=== PATIENT | male | born 1990 | race Caucasian/White ===

== ENCOUNTER 2021-05-11 13:36 | Emergency (ER) | payer OTHER, SELFPAY ==
--- NOTE | ~2021-05-11 | US_ITS ---
EXAMINATION: US SCROTUM CLINICAL INFORMATION: Bilateral testicular pain and retraction. COMPARISON: None TECHNIQUE: A sonogram of the scrotum was performed assessing apodaca-scale appearance and color Doppler flow. Spectral Doppler analysis of the arterial and venous flow were performed in the testes bilaterally. FINDINGS: RIGHT: Right testicle measures 5.2 x 2.7 x 3.1 cm, volume 22.7 mL. No focal testicular parenchymal lesions are visualized. There are scattered punctate microcalcifications without associated mass. Spectral Doppler analysis of the arterial and venous flow is normal in the right testis. No torsion. Right epididymal head is normal in size. No right hydrocele or varicocele is seen. Right epididymal Doppler flow is normal. LEFT: Left testicle measures 5.0 x 2.3 x 3.4 cm, volume 20.2 mL. No focal testicular parenchymal lesions are visualized. There are scattered punctate microcalcifications without associated mass. Spectral Doppler analysis of the arterial and venous flow is normal in the left testis. No torsion. Left epididymal head is normal in size. No left hydrocele or varicocele is seen. Left epididymal Doppler flow is normal. US/US scrotum doppler IMPRESSION: 1. Normal testicular Doppler. No torsion. No hydrocele. 2. Testicular microlithiasis is present without intratesticular mass or other worrisome findings. In the absence of any other risk factors for testicular cancer (e.g., personal history of testicular cancer, a father or brother with testicular cancer, history of cryptorchidism or maldescent, testicular atrophy, or other risk factors), no further imaging or biochemical follow-up is necessary; all that is recommended is routine monthly testicular self-examination. However, if the patient has risk factors for testicular cancer, referral to a urologist for evaluation and determination of an optimal follow-up strategy is recommended.
--- NOTE | ~2021-05-11 | US_ITS ---
EXAMINATION: US SCROTUM CLINICAL INFORMATION: Bilateral testicular pain and retraction. COMPARISON: None TECHNIQUE: A sonogram of the scrotum was performed assessing apodaca-scale appearance and color Doppler flow. Spectral Doppler analysis of the arterial and venous flow were performed in the testes bilaterally. FINDINGS: RIGHT: Right testicle measures 5.2 x 2.7 x 3.1 cm, volume 22.7 mL. No focal testicular parenchymal lesions are visualized. There are scattered punctate microcalcifications without associated mass. Spectral Doppler analysis of the arterial and venous flow is normal in the right testis. No torsion. Right epididymal head is normal in size. No right hydrocele or varicocele is seen. Right epididymal Doppler flow is normal. LEFT: Left testicle measures 5.0 x 2.3 x 3.4 cm, volume 20.2 mL. No focal testicular parenchymal lesions are visualized. There are scattered punctate microcalcifications without associated mass. Spectral Doppler analysis of the arterial and venous flow is normal in the left testis. No torsion. Left epididymal head is normal in size. No left hydrocele or varicocele is seen. Left epididymal Doppler flow is normal. US/US scrotum IMPRESSION: 1. Normal testicular Doppler. No torsion. No hydrocele. 2. Testicular microlithiasis is present without intratesticular mass or other worrisome findings. In the absence of any other risk factors for testicular cancer (e.g., personal history of testicular cancer, a father or brother with testicular cancer, history of cryptorchidism or maldescent, testicular atrophy, or other risk factors), no further imaging or biochemical follow-up is necessary; all that is recommended is routine monthly testicular self-examination. However, if the patient has risk factors for testicular cancer, referral to a urologist for evaluation and determination of an optimal follow-up strategy is recommended.
[2021-05-11 14:43] VITALS: BP 124/94; PULSE 68; RESP 16; O2SAT 100; BMI 19.8
--- NOTE | 2021-05-11 15:31 | ED.MALEGU ---
HPI - Male Genitourinary General Chief complaint: Urogenital-Male Stated complaint: testicles retracting Time Seen by Provider: 05/11/21 15:21 Source: patient Mode of arrival: ambulatory Limitations: no limitations History of Present Illness HPI Narrative: Patient is a 30-year-old male with no significant medical history. Patient reports that for the past 2 years she has noted testicular retraction bilaterally during times of sexual intercourse. This occurs without pain he is able to manually lower the bilateral testicles. He reports that he mentioned this to his PCP but has not had any outpatient ultrasound urology referral. He reports that for the past 2-3 weeks there has been associated pain with the testicular retraction and it is also occurring outside of times of sexual intercourse. Pain is made worse with movement, ambulation, and abduction of the legs. Denies swelling of the scrotum denies any new sexual partners, denies concern for sexually transmitted infection. Denies dysuria, urinary frequency, any urgency, hesitancy and a mild discharge. Denies any past history of testicular surgery or precipitating injuries. MD Complaint: testicle pain Onset (ago): week(s) (2-3) Duration: intermittent Location: right testicle and left testicle Severity scale (1-10): 5 Quality: aching Relieving factors: rest Exacerbating factors: movement Associated symptoms: Reports other (bilateral testicular retraction) Related Data Sexually active: Yes Allergies Allergy/AdvReac Type Severity Reaction Status Date / Time Unable to Assess Allergy Verified 05/11/21 15:22 Review of Systems Review of Systems: Constitutional: No weight loss, fever, chills, weakness or fatigue. HEENT: No visual loss, blurred vision, double vision or yellow sclera. No hearing loss, sneezing, congestion, runny nose or sore throat. Skin: No rash or itching. Cardiovascular: No chest pain, chest pressure or chest discomfort. No palpitations or pedal edema. Respiratory: No shortness of breath, cough or sputum production. Gastrointestinal: No anorexia, nausea, vomiting or diarrhea. No abdominal pain or blood in stool. Genitourinary: + testicular pain No burning micturition. No urinary frequency or incontinence. Neurologic: No headache, dizziness, syncope, unilateral weakness, ataxia, numbness or tingling in the extremities. No change in bowel or bladder control. Musculoskeletal: No muscle pain, back pain, joint pain or stiffness. Hematologic: No bleeding or bruising. Lymphatics: No enlarged lymph nodes. Psychiatric:No depression or anxiety. Endocrine: No reports of sweating. No cold or heat intolerance. No polyuria or polydipsia. [facility] Past Medical History Attestation statement: The following information was validated with the patient. Source: old records reviewed Social History Social History Advance Directives: No Advance Directives Information Provided: No Physical Exam Vital Signs: Vital Signs: Last Vital Signs Pulse 68 05/11/21 14:43 Resp 16 05/11/21 14:43 BP 124/94 H 05/11/21 14:43 Pulse Ox 100 05/11/21 14:43 BMI result Body Mass Index 19.8 Appearance: Alert.? Oriented X3.? No acute distress.?? Eyes: Pupils equal, round and reactive to light.?? ENT: Pharynx normal.?? Neck: Normal inspection.? Neck supple.?? CVS: Normal heart rate and rhythm.? Pulses normal.?? Respiratory: No respiratory distress.? Breath sounds normal.?? Abdomen: Soft and nontender.?? Genitourinary: No scrotal erythema, swelling, discoloration. Patient manually able to manually retract and lower bilateral testicles during exam. Skin: Skin warm and dry.? Normal skin color.? Normal skin turgor.?? Extremities: No lower extremity edema.? No calf ttp? Neuro: Oriented X 3.? No motor deficit.? No sensory deficit. Genitourinary exam performed with machine operator picker. Course Course Course Narrative: Testicular ultrasound reveals testicular microlithiasis, no torsion and no hydrocele. Symptoms are unchanged since arrival. Pain continues to only be present with movement, and ambulation. Urinalysis and urine gonorrhea and chlamydia pending. Reevaluation(s) Reevaluation #1: Notified by nursing staff that patient is requesting to leave at this time. States he has somewhere he needs to be. Advised to await all results prior to discharge, but patient declined, advised to follow-up with Urology, and to return with any worsening or new symptoms. Time: 17:00 MDM - Male Genitourinary MDM Narrative Medical decision making narrative: 30-year-old man with history and physical exam concern for bilateral testicular pain with ability to manually retract and release bilateral testicles into pelvis. This problem has been ongoing for a couple of years, however the penis. In consideration of this, urinalysis to be obtained to exclude acute cystitis and urine screening for gonorrhea and chlamydia. Scrotum doppler US to exclude testicular torsion, but is unlikely given the ability manually descend the testicles. Differential Diagnosis Differential diagnosis: Likely urinary tract infection; Unlikely priapism Medical Records Attestation: I reviewed the patient's medical records. Lab Data Attestation: I reviewed the patient's lab results. Imaging Data scrotum us: Radiologist's impression: IMPRESSION: ? 1. Normal testicular Doppler. No torsion. No hydrocele. ? 2. Testicular microlithiasis is present without intratesticular mass or other worrisome findings. In the absence of any other risk factors for testicular cancer (e.g., personal history of testicular cancer, a father or brother with testicular cancer, history of cryptorchidism or maldescent, testicular atrophy, or other risk factors), no further imaging or biochemical follow-up is necessary; all that is recommended is routine monthly testicular self-examination. However, if the patient has risk factors for testicular cancer, referral to a urologist for evaluation and determination of an optimal follow-up strategy is recommended. Discharge Plan Discharge Clinical Impression: Pain in testicle Patient Disposition: Home, Self-Care Instructions: Testicle Pain (ED) Additional Instructions: You have decided to leave the emergency department prior to all of your results being back. The results of your testicular ultrasound revealed presence of small stones, theres is nothing to be done about this at this time. You should contact Dr Najera with Urology for further follow-up and evaluation. You can use Tylenol or Ibuprofen as needed for pain. Please return to ED for any worsening symptoms or concerns. Referrals: Wilder Najera MD [Physician] - 2 days Interventions: ED Discharge Assessment Last Done: 05/11/21 17:11
[2021-05-11 17:32] LABS: Appearance Urine CLEAR; Color Urine YELLOW; Glucose Urine UA NEG (NEG); Leukocyte Esterase Urine NEG (NEG); Nitrite Urine NEG (NEG); PH 5.5 (5.0-8.0); Urine Blood NEG (NEG); Urine Ketones NEG (NEG); Urine Protein NEG (NEG-TRACE)
[2021-05-12 05:14] LABS: CT PCR NOT DETECTED (Not Detect.); NG PCR NOT DETECTED (Not Detect.)
== END 2021-05-11 17:11 | disposition home or self-care (01) ==
PROVIDERS: Nurse Practitioner Family; Emergency Provider Emergency Medicine; PCP Internal Medicine
DX: N50.812 Left testicular pain (principal); N50.811 Right testicular pain
CPT/HCPCS: 76870; 81003; 87491; 87591; 93975; 99282; 99283; 99284